=== PATIENT | female | born 1995 | race Caucasian/White ===

== ENCOUNTER 2019-09-27 16:36 | Emergency (ER) | payer MEDICAID ==
[~2019-09-27] VITALS: Ht 165.1 cm; Wt 74.8 kg
[2019-09-27 16:38] VITALS: BP 114/70
--- NOTE | 2019-09-27 16:43 | NUR ---
Patient ambulated to bed 1. RN evaluating patient at bedside.
--- NOTE | 2019-09-27 16:45 | NUR ---
Recieved patient from triage , 32 weeks gestation, 3 days w/ malaise, cough, h/a, and eye pain; no fever, N/V/D. Patient states she becomes SOB w/ cough. pending md cramer.
--- NOTE | 2019-09-27 17:25 | NUR ---
Seen at bedside by ED MD.
[2019-09-27 18:19] VITALS: BP 106/63
--- NOTE | 2019-09-27 18:20 | NUR ---
Patient discharged with v/s stable. Written and verbal after care instructions given and explained. Patient encouraged to rest and drink po fluids.Patient verbalized understanding. Ambulatory with steady gait. All questions addressed prior to discharge. Advised to follow up with OBGYN THIS WEEK, PT IS 32 WEEKS .
== END 2019-09-27 18:20 | disposition home or self-care (01) ==
LOC: MED 16:36
DX: O98.513 Other viral diseases complicating pregnancy, third trimester (principal); Z3A.32 32 weeks gestation of pregnancy
CPT/HCPCS: 99283